=== PATIENT | male | born 1985 | race Caucasian/White ===

== ENCOUNTER → 2016-08-08 | Outpatient (CLI) | payer BC ==
[~2016-08-08] MED LIST: AVONEX ADM30 MCG/KIT IJ; VITAMIN D32000 IU PO
== END ==
LOC: COL.RAD 09:00
DX: G35 Multiple sclerosis (principal)
CPT/HCPCS: A9585

== ENCOUNTER 2016-09-22 13:30 | Outpatient (RCR) | payer BC ==
[2016-09-20 16:05] VITALS: BP 116/73; PULSE 81; TEMP 98.1
[2016-09-21 10:58] VITALS: BP 122/58; PULSE 99; TEMP 98.6
[~2016-09-22] VITALS: Ht 170.2 cm; Wt 72.0 kg
[2016-09-22 13:27] VITALS: BP 107/59; PULSE 71; TEMP 98.4
== END 2016-09-22 14:26 | disposition home or self-care (01) ==
LOC: EUO 13:30
DX: G35 Multiple sclerosis (principal)
CPT/HCPCS: J2930; J7050

== ENCOUNTER → 2017-01-04 | Outpatient (CLI) | payer BC | LOC: COL.RAD 13:15 | DX: G95.89 Other specified diseases of spinal cord (principal); M47.812 Spondylosis without myelopathy or radiculopathy, cervical region; M48.02 Spinal stenosis, cervical region; G35 Multiple sclerosis | CPT/HCPCS: A9585 ==

== ENCOUNTER → 2019-06-24 | Outpatient (CLI) | payer BC | LOC: COL.RAD 08:15 | DX: G35 Multiple sclerosis (principal); E55.9 Vitamin D deficiency, unspecified; R90.82 White matter disease, unspecified; M46.92 Unspecified inflammatory spondylopathy, cervical region; M50.21 Other cervical disc displacement, high cervical region; M48.02 Spinal stenosis, cervical region; G37.8 Other specified demyelinating diseases of central nervous system | CPT/HCPCS: A9585 ==